=== PATIENT | female | born 1970 | race Caucasian/White ===

== ENCOUNTER 2016-09-25 13:01 | Observation (INO) | payer BC ==
[2016-09-25 14:50] LABS: Hematocrit 39 % (35-47); Hemoglobin 13.1 g/dl (12.0-16.0); Mean Corpuscular HGB Conc 34 g/dl (31-36); Mean Corpuscular Hemoglobin 31 pg (27-31); Mean Corpuscular Volume 92 fL (80-97); Mean Platelet Volume 7 um3 (7.4-10.4); Red Blood Count 4.21 10^6/ul (4.0-5.4); Red Cell Distribution Width 13 % (10.5-15); White Blood Count 6.7 10^3/ul (3.5-10.8)
[2016-09-25 15:06] LABS: BUN/Creatinine Ratio 9.4 (8-20); Calcium 8.4 mg/dL (8.6-10.3); EGFR African American 129.1 (>60); EGFR Non-African American 100.3 (>60); Magnesium 1.9 mg/dL (1.9-2.7); Potassium 3.6 mmol/L (3.5-5.0)
--- NOTE | 2016-09-25 15:48 | RAD ---
HISTORY: Left calf pain COMPARISONS: None relevant TECHNIQUE: Multiple transverse and longitudinal ultrasound images were obtained of the left lower extremity from the level of the common femoral vein inferiorly through to the infrapopliteal veins using grayscale, color Doppler, and spectral Doppler imaging with and without compression and with augmentation. Comparison images were obtained of the contralateral common femoral vein. FINDINGS: VEINS: The venous system of the left lower extremity is compressible throughout its course, with normal flow on color Doppler imaging and normal response to augmentation on spectral Doppler imaging. SOFT TISSUES: Unremarkable. OTHER FINDINGS: None. IMPRESSION: NO LEFT LOWER EXTREMITY DEEP VEIN THROMBOSIS
[2016-09-25] MEDS ORDERED: NS 0.9% 1000 ML* 1,000 ML IV ONE (15:52)
--- NOTE | 2016-09-25 17:19 | ED ---
Complex/Multi-Sys Presentation - HPI Summary HPI Summary: Pt here w/ "just feeling sick" x 1 week. Also has Lt LE pain and is concerned this could be a MRSA infection as she had one here when she was a kid. No overlying redness, streaking, fever, chills, swelling of LE. [facility] to [facility] - per pt, no DVT. Denies fever, chills, URI sx, chest pain, cough, shortness of breath, abdominal pain, dysuria, nausea, vomiting, diarrhea, dysuria. States she was seen at her [facility] (Dr. Colby) 1 week ago for annual exam. Upon reviewing routine labs, pt was found to have elevated WBC's. She reports a h/o flu-like sx 3 weeks ago - this improved and she's been feeling fine until recent sx started. Sx today feel different from flu-like sx 3 weeks ago. She also reports she's been struggling with feeling well in general since thyroidectomy in April 2016. H/o hyponatremia, hypocalcemia - states the latter may be a result of accidental parathyroid removal and damage to a couple of these glands. She's been taking levothyroxine since (TFS's appear to be normal per labs except a low total F3). She takes a calcium supplement as well as a beta william since this surgery (metoprolol 12.5mg BID). Still has intermittent palpitations but not as bad as they were and nothing new as of late. Also struggles w/ hypoglycemia since surgery. No swelling or acute hair loss reported. Has not been sleeping well in general the past week - again, "just doesn't feel right". - History Of Current Complaint Hx Obtained From: Patient, Family/Morning Show Host - male partner <Diana Ford - Last Filed: 09/25/16 17:29> <Drea Stein - Last Filed: 09/27/16 09:56> - History Of Current Complaint Chief Complaint: EDExtremityLower Time Seen by Provider: 09/25/16 14:32 - Allergies/Home Medications Allergies/Adverse Reactions: Allergies Allergy/AdvReac Type Severity Reaction Status Date / Time Cephalexin [From Keflex] Allergy Severe Anaphylatic Verified 06/01/16 16:59 Shock Home Medications: Home Medications Calcium Carbonate CHEW TAB* [Tums*] 1,000 mg PO DAILY 09/25/16 [History Confirmed 09/25/16] Levothyroxine TAB* [Synthroid TAB*] 137 mcg PO 0800 09/25/16 [History Confirmed 09/25/16] Metoprolol Tartrate 12.5 mg PO BID 09/25/16 [History Confirmed 09/25/16] PMH/Surg Hx/FS Hx/Imm Hx Previously Healthy: Yes Endocrine/Hematology History: Reports: Hx Diabetes - HYPOGLYCEMIA, Hx Thyroid Disease - graves disease, thyroidectomy 04/2016, Other Endocrine/Hematological Disorders - hypoglycemia Cardiovascular History: Denies: Hx Hypertension, Other Cardiovascular Problems/Disorders Respiratory History: Denies: Other Respiratory Problems/Disorders Musculoskeletal History: Reports: Other Musculoskeletal History - herniated cervical disc Sensory History: Reports: Hx Contacts or Glasses - GLASSES Opthamlomology History: Reports: Hx Contacts or Glasses - GLASSES Psychiatric History: Reports: Hx Anxiety - Surgical History Surgery Procedure, Year, and Place: appendectomy. partial hysterectomy. thyroidectomy Hx Anesthesia Reactions: No Infectious Disease History: Yes Infectious Disease History: Denies: Traveled Outside the [place] in Last 30 Days - Family History Known Family History: Positive: None - Social History Lives: With Family Alcohol Use: None Hx Substance Use: No Substance Use Type: Reports: None Hx Tobacco Use: No Smoking Status (MU): Current Every Day Smoker Type: Cigarettes Amount Used/How Often: 1 PPD Length of Time of Smoking/Using Tobacco: several years Have You Smoked in the Last Year: Yes <Diana Ford - Last Filed: 09/25/16 17:29> Review of Systems Constitutional: Negative Eyes: Negative ENT: Negative Positive: Palpitations - see HPI Respiratory: Negative Gastrointestinal: Negative - reduced appetite Genitourinary: Other - urinating more frequently Musculoskeletal: Other - see HPI Negative: Rash, Bruising Neurological: Negative Psychological: Normal All Other Systems Reviewed And Are Negative: Yes <Diana Ford - Last Filed: 09/25/16 17:29> Physical Exam Triage Information Reviewed: Yes Vital Signs On Initial Exam: Initial Vitals Temp Pulse Resp BP Pulse Ox 97.5 F 86 16 106/78 97 09/25/16 13:05 09/25/16 13:05 09/25/16 13:05 09/25/16 13:05 09/25/16 13:05 Vital Signs Reviewed: Yes Appearance: Positive: Well-Appearing, No Pain Distress, Well-Nourished, Thin Skin: Positive: Warm - no erythema, no ecchymosis over affected area on LLE, Dry Head/Face: Positive: Normal Head/Face Inspection Eyes: Positive: Normal, EOMI, Conjunctiva Clear - anicteric sclera ENT: Positive: Normal ENT inspection, Hearing grossly normal, Pharynx normal - mucosa moist. Negative: Nasal congestion, Nasal drainage Neck: Positive: Supple, Nontender, Other: - healed scar over anterior cervical region Respiratory/Lung Sounds: Positive: Clear to Auscultation, Breath Sounds Present. Negative: Rales, Rhonchi, Stridor, Wheezes Cardiovascular: Positive: Normal, RRR, Pulses are Symmetrical in both Upper and Lower Extremities - DP's + 1-2 equal B/L, cap refill < 2 secs, S1, S2. Negative: Murmur, Rub, Leg Edema Left - + Jonathan's, Leg Edema Right Abdomen Description: Positive: Nontender, No Organomegaly, Soft Bowel Sounds: Positive: Present Musculoskeletal: Positive: Normal, Strength/ROM Intact Neurological: Positive: Normal, Sensory/Motor Intact, Alert, Oriented to Person Place, Time, CN Intact II-III, Reflexes Intact Psychiatric: Positive: Normal - [place] Coma Scale Coma Scale Total: 15 <Diana Ford - Last Filed: 09/25/16 17:29> Vital Signs On Initial Exam: Initial Vitals Temp Pulse Resp BP Pulse Ox 97.5 F 86 16 106/78 97 09/25/16 13:05 09/25/16 13:05 09/25/16 13:05 09/25/16 13:05 09/25/16 13:05 <Drea Stein - Last Filed: 09/27/16 09:56> Diagnostics - Vital Signs Vital Signs Temp Pulse Resp BP Pulse Ox 09/25/16 17:00 68 96 09/25/16 16:00 65 126/73 94 09/25/16 15:00 93/59 09/25/16 14:30 94/67 09/25/16 14:00 66 99/70 94 09/25/16 13:34 71 95 09/25/16 13:32 102/70 09/25/16 13:05 97.5 F 86 16 106/78 97 - Laboratory Lab Results: Lab Results 09/25/16 09/25/16 09/25/16 Range/Units 14:40 14:40 14:40 WBC 6.7 (3.5-10.8) 10^3/ul RBC 4.21 (4.0-5.4) 10^6/ul Hgb 13.1 (12.0-16.0) g/dl Hct 39 (35-47) % MCV 92 (80-97) fL MCH 31 (27-31) pg MCHC 34 (31-36) g/dl RDW 13 (10.5-15) % Plt Count 239 (150-450) 10^3/ul MPV 7 L (7.4-10.4) um3 Neut % (Auto) 61.2 (38-83) % Lymph % (Auto) 32.4 (25-47) % Mcdonough % (Auto) 4.7 (1-9) % Eos % (Auto) 1.1 (0-6) % Baso % (Auto) 0.6 (0-2) % Absolute Neuts (auto) 4.1 (1.5-7.7) 10^3/ul Absolute Lymphs (auto) 2.2 (1.0-4.8) 10^3/ul Absolute Monos (auto) 0.3 (0-0.8) 10^3/ul Absolute Eos (auto) 0.1 (0-0.6) 10^3/ul Absolute Basos (auto) 0 (0-0.2) 10^3/ul Absolute Nucleated RBC 0 10^3/ul Nucleated RBC % 0 Sodium 122 L (133-145) mmol/L Potassium 3.6 (3.5-5.0) mmol/L Chloride 93 L (101-111) mmol/L Carbon Dioxide 23 (22-32) mmol/L Anion Gap 6 (2-11) mmol/L BUN 6 (6-24) mg/dL Creatinine 0.64 (0.51-0.95) mg/dL Est GFR ( Amer) 129.1 (>60) Est GFR (Non-Af Amer) 100.3 (>60) BUN/Creatinine Ratio 9.4 (8-20) Glucose 91 (70-100) mg/dL Lactic Acid 0.6 (0.5-2.0) mmol/L Calcium 8.4 L (8.6-10.3) mg/dL Magnesium 1.9 (1.9-2.7) mg/dL Result Diagrams: 09/25/16 14:40 09/25/16 14:40 Lab Statement: Any lab studies that have been ordered have been reviewed, and results considered in the medical decision making process. <Diana Ford - Last Filed: 09/25/16 17:29> - Vital Signs Vital Signs Temp Pulse Resp BP Pulse Ox 09/25/16 17:00 68 96 09/25/16 16:00 65 126/73 94 09/25/16 15:00 93/59 09/25/16 14:30 94/67 09/25/16 14:00 66 99/70 94 09/25/16 13:34 71 95 09/25/16 13:32 102/70 09/25/16 13:05 97.5 F 86 16 106/78 97 - Laboratory Lab Results: Lab Results 09/25/16 09/25/16 09/25/16 Range/Units 14:40 14:40 14:40 WBC 6.7 (3.5-10.8) 10^3/ul RBC 4.21 (4.0-5.4) 10^6/ul Hgb 13.1 (12.0-16.0) g/dl Hct 39 (35-47) % MCV 92 (80-97) fL MCH 31 (27-31) pg MCHC 34 (31-36) g/dl RDW 13 (10.5-15) % Plt Count 239 (150-450) 10^3/ul MPV 7 L (7.4-10.4) um3 Neut % (Auto) 61.2 (38-83) % Lymph % (Auto) 32.4 (25-47) % Mcdonough % (Auto) 4.7 (1-9) % Eos % (Auto) 1.1 (0-6) % Baso % (Auto) 0.6 (0-2) % Absolute Neuts (auto) 4.1 (1.5-7.7) 10^3/ul Absolute Lymphs (auto) 2.2 (1.0-4.8) 10^3/ul Absolute Monos (auto) 0.3 (0-0.8) 10^3/ul Absolute Eos (auto) 0.1 (0-0.6) 10^3/ul Absolute Basos (auto) 0 (0-0.2) 10^3/ul Absolute Nucleated RBC 0 10^3/ul Nucleated RBC % 0 Sodium 122 L (133-145) mmol/L Potassium 3.6 (3.5-5.0) mmol/L Chloride 93 L (101-111) mmol/L Carbon Dioxide 23 (22-32) mmol/L Anion Gap 6 (2-11) mmol/L BUN 6 (6-24) mg/dL Creatinine 0.64 (0.51-0.95) mg/dL Est GFR ( Amer) 129.1 (>60) Est GFR (Non-Af Amer) 100.3 (>60) BUN/Creatinine Ratio 9.4 (8-20) Glucose 91 (70-100) mg/dL Lactic Acid (0.5-2.0) mmol/L Calcium 8.4 L (8.6-10.3) mg/dL Phosphorus 3.1 (2.5-5.0) mg/dL Magnesium 1.9 (1.9-2.7) mg/dL TSH 0.44 (0.34-5.60) mcIU/mL Free T4 1.47 H (0.61-1.12) ng/dL Free T3 2.90 (2.5-3.9) pg/mL Ur Random Sodium mmol/L HIV 1&2 Antibody Nonreactive (Nonreactive) 09/25/16 09/25/16 Range/Units 14:40 14:40 WBC (3.5-10.8) 10^3/ul RBC (4.0-5.4) 10^6/ul Hgb (12.0-16.0) g/dl Hct (35-47) % MCV (80-97) fL MCH (27-31) pg MCHC (31-36) g/dl RDW (10.5-15) % Plt Count (150-450) 10^3/ul MPV (7.4-10.4) um3 Neut % (Auto) (38-83) % Lymph % (Auto) (25-47) % Mcdonough % (Auto) (1-9) % Eos % (Auto) (0-6) % Baso % (Auto) (0-2) % Absolute Neuts (auto) (1.5-7.7) 10^3/ul Absolute Lymphs (auto) (1.0-4.8) 10^3/ul Absolute Monos (auto) (0-0.8) 10^3/ul Absolute Eos (auto) (0-0.6) 10^3/ul Absolute Basos (auto) (0-0.2) 10^3/ul Absolute Nucleated RBC 10^3/ul Nucleated RBC % Sodium (133-145) mmol/L Potassium (3.5-5.0) mmol/L Chloride (101-111) mmol/L Carbon Dioxide (22-32) mmol/L Anion Gap (2-11) mmol/L BUN (6-24) mg/dL Creatinine (0.51-0.95) mg/dL Est GFR ( Amer) (>60) Est GFR (Non-Af Amer) (>60) BUN/Creatinine Ratio (8-20) Glucose (70-100) mg/dL Lactic Acid 0.6 (0.5-2.0) mmol/L Calcium (8.6-10.3) mg/dL Phosphorus (2.5-5.0) mg/dL Magnesium (1.9-2.7) mg/dL TSH (0.34-5.60) mcIU/mL Free T4 (0.61-1.12) ng/dL Free T3 (2.5-3.9) pg/mL Ur Random Sodium 51 mmol/L HIV 1&2 Antibody (Nonreactive) Result Diagrams: 09/25/16 14:40 09/26/16 06:24 Lab Statement: Any lab studies that have been ordered have been reviewed, and results considered in the medical decision making process. <Drea Stein - Last Filed: 09/27/16 09:56> Complex Multi-Symp Course/Dx Course Of Treatment: Pt presents with "feeling sick" over past week. Also has LLE pain. Came in out of concern regarding recent elevated WBC's on routine lab exam. Also concerned leg pain is d/t MRSA infection as she had this as a child. Reports she's srtuggled w/ Na, Calcium and glucose levels since thryoidectomy in Apr 2016 -follows w/ Dr. Colby. Most recent TFS's are stable. Labs reveal improved WBC's however pt has a very low Na at 122, Chloride 93 and Calcium 8.4 (states the latter is normal for her). See HPI and note for details. Spoke with Dr. Alice Taylor who prefers the hospital service to admit pt tonight, however she will round on the patient tomorrow morning. Spoke with Dr. Reyez who agrees w/ plan. - Physician Notifications Discussed Care Of Patient With: Dr. Stein. Dr. Taylor. Dr. Reyez <Diana Ford - Last Filed: 09/25/16 17:29> <Drea Stein - Last Filed: 09/27/16 09:56> - Diagnoses Provider Diagnoses: Hyponatremia Discharge <Diana Ford - Last Filed: 09/25/16 17:29> <Drea Stein - Last Filed: 09/27/16 09:56> - Discharge Plan Condition: Stable Disposition: ADMITTED TO [facility] User Type: Provider - I was available for consult. This patient was seen by the advanced practice provider. The patient was not seen by or examined by me. <Drea Stein - Last Filed: 09/27/16 09:56>
[2016-09-25] MEDS ORDERED: HYDROcodone/ACETAMIN 5-325 MG* 1 TAB PO PRN (17:42)
[2016-09-25 18:15] LABS: TSH (Thyroid Stimulating Horm) 0.44 mcIU/mL (0.34-5.60)
[2016-09-25 18:20] LABS: Free T3 2.9 pg/mL (2.5-3.9)
[2016-09-25 18:21] LABS: Free T4 1.47 ng/dL (0.61-1.12)
--- NOTE | 2016-09-25 18:48 | RAD ---
HISTORY: Fluid versus pneumonia, generalized illness COMPARISONS: June 01, 2016 VIEWS:1: Single frontal portable view of the chest at 6:23 PM FINDINGS: Evaluation is limited by overlying metallic artifact. LINES AND TUBES: None. CARDIOMEDIASTINAL SILHOUETTE: The cardiomediastinal silhouette is normal for portable technique. PLEURA: The costophrenic angles are sharp. No pleural abnormalities are noted. LUNG PARENCHYMA: There is minimal linear opacification of the right lung base. ABDOMEN: The upper abdomen is clear. There is no subphrenic gas. BONES AND SOFT TISSUES: No bone or soft tissue abnormalities are noted. IMPRESSION: MINIMAL LINEAR ATELECTASIS OF THE RIGHT LOWER LUNG.
[2016-09-25] MEDS: HYDROcodone/ACETAMIN 5-325 MG* 1 TAB PO PRN (19:57)
[2016-09-25 20:10] LABS: Calcium 8.4 mg/dL (8.6-10.3); EGFR African American 147.5 (>60); EGFR Non-African American 114.7 (>60); Potassium 3.6 mmol/L (3.5-5.0)
--- NOTE | 2016-09-25 21:01 | HP ---
HISTORY AND PHYSICAL: DATE OF ADMISSION: 09/25/16 PRIMARY CARE PHYSICIAN: Dr. Sridhar Colby ATTENDING PHYSICIAN: Tanya Reyez DO *(dictation provided by Cassia Yarbrough NP) PRIMARY COMPLAINT: Generally feeling unwell and having left calf pain. HISTORY OF PRESENT ILLNESS: Ms. Puente is a 46-year-old female with a past medical history of Graves disease status post subtotal thyroidectomy in 2016 as well as hypertension, anxiety and chronic back pain who presents today to the hospital with concern for "feeling generally unwell" and left calf pain. Ms. Puente states that she started feeling unwell approximately one week ago. She describes nausea, but no vomiting. She has been able to tolerate oral intake, although her appetite has been limited. She describes malaise, myalgias and arthralgias. She has not had a fever, but she has had chills. She has had a little bit of a cough, but that resolved quickly. She has normal formed bowel movements. She denies any night sweats. In addition to this, a few days ago, she developed pain in her left calf. She has no memory of any trauma to the area. She states the pain is fairly constant, nothing seems to exacerbate or lessen it. Ultimately, she decided to come to the emergency room today because she has been sleeping so poorly and knew that something must be wrong because she felt so unwell. In the emergency room, Ms. Puente had a venous Doppler study of her left lower extremity, which showed no evidence of DVT. The clinical exam on her left lower extremity was also benign. She did not go for further x-ray imaging. She was surprisingly found to have a sodium of 122. She has a history of hyponatremia dating back to April 2016. The patient reports that at that time it was felt that that was secondary to pneumonia. She denies any excessive free water intake and states that she drinks about three bottles of water per day. She denies beer drinking at all. She denies any unusual ingestions. Based on Ms. Puente's presentation with malaise and sodium of 122, Hospital Medicine was called regarding admission. PAST MEDICAL HISTORY: 1. Anxiety. 2. Chronic back pain, on hydrocodone. 3. Hypothyroidism status post Graves disease and subtotal thyroidectomy in 2016. 4. Tachycardia for which he takes metoprolol. 5. History of hysterectomy, 1995. 6. History of appendectomy, 2001. 7. History of hypocalcemia, on daily replacement. MEDICATIONS: 1. Biotin 1000 micrograms p.o. daily. 2. Citalopram 40 mg p.o. daily. 3. Tylenol PM two tablets p.o. bedtime. 4. Hydrocodone/acetaminophen one tablet p.o. 4 times a day. 5. Ibuprofen 600 mg p.o. b.i.d. 6. Melatonin 10 mg p.o. at bedtime. 7. Alprazolam 1 mg p.o. t.i.d. 8. Carisoprodol 350 mg p.o. t.i.d. 9. Cholecalciferol 1000 units p.o. daily. 10. Gabapentin 300 mg p.o. t.i.d. 11. Levothyroxine 137 micrograms p.o. daily. 12. Metoprolol tartrate 12.5 mg p.o. b.i.d. ALLERGIES: CEPHALEXIN. FAMILY HISTORY: The patient reports that there is hypothyroidism in the mother and the sister. No significant history otherwise noted. SOCIAL HISTORY: The patient is a continued a pack a day smoker and she smokes since she was 17. She has never tried to quit. She denies any alcohol or drug use. She lives with her , who is her healthycare proxy. REVIEW OF SYSTEMS: A 14-point review of systems was completed with Ms. Puente and all those not mentioned above were negative. PHYSICAL EXAMINATION GENERAL: Ms. Puente is lying in the bed. She is in no acute distress. She is calm and cooperative with my examination. VITAL SIGNS: Temperature 98.5, heart rate 68, respiratory rate 18, O2 saturations 96% on room air, and blood pressure 126/73. HEART: S1 and S2. No murmur, rubs, or gallop. Regular. LUNGS: Clear to auscultation bilaterally with no accessory muscle use and good aeration. ABDOMEN: Soft and nontender with bowel sounds positive x4. EXTREMITIES: No cyanosis or edema. There is no gross abnormality to the left calf at all. The area is soft, nontender and no erythema, no edema. SKIN: Intact. NEUROLOGIC: She is alert and oriented x3. She moves all extremities equally. There is no facial asymmetry or focal weakness. Extraocular movements are intact. DIAGNOSTIC STUDIES/LAB DATA: Sodium 122, potassium 3.6, chloride 93, serum bicarbonate 23, BUN 6, creatinine 0.64, glucose 91, lactic acid 0.6, and magnesium 1.9. TSH, free T4 and free T3 are pending. WBC is 6.7, hemoglobin 13.1, hematocrit 39, platelet count 239. Chest x-ray is pending. Venous Doppler study shows no DVT of the left lower extremity. ASSESSMENT: Ms. Puente is a 46-year-old female with past medical history of Graves disease now with hypothyroidism status post subtotal thyroidectomy as well as anxiety and chronic back pain who presents today at the hospital with concern for feeling generally unwell and having left calf pain. In the emergency room, she was found to be hyponatremic with a sodium of 122. Our plan is for observation in the hospita for the followin. Hyponatremia: The cause of Ms. Puente's hyponatremia is unclear. I do note that she did have an episode late last year that was felt to be related to pneumonia. Since then her sodium has been at least 130 or above. She denies excessive water intake. She denies excessive beer intake. She is on a list of medications that has not changed recently. I note that she is on citalopram, which can cause hyponatremia. She states she has been on this for two years. She is willing to consider reducing that and perhaps going off of that if that is what the cause. For now, I am decreasing the dose to 20 mg. It could be related to under treated hypothyroidism and I am checking a TSH, free T3 and T4. I am also checking a chest x-ray. The patient is a senior care chronic smoker and could have lung pathology causing SIADH. Her volume status at this time is essentially euvolemic. Plan to recheck her sodium level in a couple of hours. She has been given some normal saline in the emergency room. In the interim, she will be on a fluid restriction and we can adjust that going forward based on repeat checks of the sodium. 2. Chronic pain. Continue hydrocodone. 3. Hypothyroidism. Again, we are checking TSH and free T3, T4, but for now we will continue her home dose of levothyroxine. 4. Anxiety. Continue Xanax and we will be reducing the dose of citalopram. The patient was comfortable with that. 5. Tachycardia. Continue metoprolol. 6. Hypocalcemia. Continue Tums. 7. DVT prophylaxis with heparin subcu. 8. Disposition to the [facility] for observation. 9. Code status. Full code. TIME SPENT: Approximately 60 minutes was spent in the admission of this patient , more than half of the time was spent with her at the bedside reviewing the events leading up to this hospitalization, performing the physical examination, and reviewing the plan of care. CASSIA YARBROUGH NP CC: Dr. Colby * [id number]/CPS #: [id number] SRI
[2016-09-25] MEDS: NS 0.9% 1000 ML* 1,000 ML IV SCH (22:59)
[2016-09-25] MEDS: ALPRAZolam TAB* 0.5 MG PO SCH (23:06)
[2016-09-25] MEDS: Gabapentin CAP(*) 300 MG PO SCH (23:07)
[2016-09-25] MEDS: Carisoprodol TAB* 350 MG PO SCH (23:08)
[2016-09-25] MEDS: Metoprolol Tartrate TAB* 25 MG PO SCH (23:41)
[2016-09-25] MEDS ORDERED: Nicotine PATCH 21 MG/24 HR* PATCH TRANSDERM SCH (23:45)
[2016-09-26 07:14] LABS: Anion Gap 6 mmol/L (2-11); BUN/Creatinine Ratio 9.7 (8-20); Blood Urea Nitrogen 6 mg/dL (6-24); CO2 Carbon Dioxide 23 mmol/L (22-32); Calcium 8.3 mg/dL (8.6-10.3); Chloride 109 mmol/L (101-111); EGFR African American 133.9 (>60); EGFR Non-African American 104.1 (>60); Glucose 81 mg/dL (70-100); Potassium 3.7 mmol/L (3.5-5.0); Sodium 138 mmol/L (133-145)
[2016-09-26] MEDS ORDERED: Levothyroxine TAB* 137 MCG TAB PO SCH (08:00)
[2016-09-26] MEDS: ALPRAZolam TAB* 0.5 MG PO SCH ×2 (08:21→14:02)
[2016-09-26] MEDS: NS 0.9% 1000 ML* 1,000 ML IV SCH (08:22)
[2016-09-26] MEDS: Carisoprodol TAB* 350 MG PO SCH ×2 (08:22→14:00)
[2016-09-26] MEDS: Metoprolol Tartrate TAB* 25 MG PO SCH (08:23)
[2016-09-26] MEDS: Gabapentin CAP(*) 300 MG PO SCH ×2 (08:23→14:01)
[2016-09-26] MEDS ORDERED: Cholecalciferol TAB* 1000 UNITS PO SCH (09:00)
[2016-09-26] MEDS ORDERED: Calcium Carbonate CHEW TAB* 500 MG (TUMS) PO SCH (09:00)
[2016-09-26] MEDS ORDERED: Citalopram TAB* 20 MG PO SCH (09:00)
[2016-09-26] MEDS: HYDROcodone/ACETAMIN 5-325 MG* 1 TAB PO PRN (11:11)
[2016-09-26] MEDS ORDERED: Nicotine Patch Removal NOTE PATCH OFF SCH (11:45)
[2016-09-26 12:32] LABS: C Reactive Protein < 1.00 mg/L (< 5.00)
[2016-09-26 13:14] VITALS: BP 106/64
[2016-09-26 13:41] LABS: Phosphorus 3.1 mg/dL (2.5-5.0)
--- NOTE | 2016-09-26 13:51 | RAD ---
HISTORY: Atelectasis, hyponatremia COMPARISONS: September 25, 2016 VIEWS: 2: Frontal dual-energy and lateral views of the chest. FINDINGS: CARDIOMEDIASTINAL SILHOUETTE: The cardiomediastinal silhouette is normal. MARIELENA: The marielena are normal. PLEURA: The costophrenic angles are sharp. No pleural abnormalities are noted. LUNG PARENCHYMA: There is hyperinflation. There is improved aeration of the right lung base ABDOMEN: The upper abdomen is clear. There is no subphrenic gas. BONES AND SOFT TISSUES: No bone or soft tissue abnormalities are noted. OTHER: None. IMPRESSION: HYPERINFLATION, CONSISTENT WITH COPD. NO ACTIVE CARDIOPULMONARY DISEASE.
--- NOTE | 2016-09-27 08:31 | DS ---
DISCHARGE SUMMARY: DATE OF ADMISSION: 09/25/16 DATE OF DISCHARGE: 09/26/16 DISCHARGE DIAGNOSES: 1. Hyponatremia, resolved. 2. Acquired hypothyroidism due to thyroidectomy for Graves disease, treated, normal TSH. 3. History of anxiety. 4. History of neck and arm pain due to cervical radiculopathy. 5. History of tachycardia. 6. Tobacco abuse. 7. Hypocalcemia. 8. Atelectasis on chest x-ray. 9. Status post hysterectomy. 10. Status post appendectomy. 11. Recent upper respiratory infection. 12. Recent nausea, possible viral gastroenteritis. 13. Left calf pain, etiology uncertain. 14. History of vitamin D deficiency. HISTORY: The patient is a 46-year-old woman admitted with feelings of malaise, left calf pain, found to be hyponatremic in the emergency room. Please see the dictated admission note for details of the present illness, past medical history , family history, social and personal history, review of systems, and physical examination. LABORATORY: WBC 6.6, H and H 13.1/39, MCV 92, PLT 239,000. Chemistries: Sodium 122, potassium 3.6, chloride 93, CO2 23, BUN 6, creatinine 0.64, calcium 8.4. Repeat chemistries on 09/25/16: Sodium 128 and on 09/26/16, sodium 138, potassium 3.7, chloride 106, CO2 23, BUN and creatinine 6/0.62, glucose 81, calcium 8.3. CRP less than 1. Free T4 1.47, free T3 2.90, TSH 0.44, magnesium 1.9. Urine sodium 51. Serum osmolality pending. Influenza A and B negative. IMAGING: Chest x-ray showed right basilar atelectasis, which is new since previous EKG from fall 2015. Venous Doppler study of the left calf was negative for DVT. Repeat chest x-ray pending. HOSPITAL COURSE: The patient was admitted. She was given IV normal saline and her sodium came up (see above). The cause of her hyponatremia was unclear. The urine osmolality is pending. She might have had a viral gastroenteritis causing nausea that caused her to lose her appetite. She was on citalopram which she has been on for some time, can cause hyponatremia. So, this dose was cut in half. She was felt to be euvolemic. She was said to be placed on the fluid restriction, but said she was drinking plenty of water when she was in the hospital. She did receive IV fluids. She got at least 3 bags she thinks. The last bag was stopped this morning. It is not clear from the MAR exactly how much she got. Her other usual medications were continued other than the cutback on the citalopram. When I saw her on 09/26/16, she said she was feeling better, but not great. She described a respiratory infection that she has had about a month ago which lasted about 2 weeks and she has felt better after that until she began not feeling well on Tuesday losing her appetite (6 days ago). She can think of no other reason why her sodium would have gone down. At this point, it was felt that with her sodium back up and her feeling better that it was reasonable for her to go home. We discussed keeping a regular diet and not limiting salt. She was told to cut back on her soda intake , stop drinking Pepsi which she was drinking about 3 to 4 cans a day. She was told to drink juices such as V8 instead which would increase her salt intake. She said she liked that. Her activity was as tolerated. She was told not to smoke. She did have patches at home. They have been paid for by her insurance company. At the present time, her medications are as follows: 1. Citalopram 20 mg once a day. 2. Hydrocodone/APAP 7.5/325 two every 4 hours as needed for pain. 3. Alprazolam 1 mg 3 times a day as needed for anxiety. 4. Carisoprodol 250 mg 3 times a day as needed for muscle spasm. 5. Gabapentin 300 mg 3 times a day. 6. Metoprolol 12.5 mg twice a day. 7. Nicotine patch 21 mg every 24 hours. 8. Levothyroxine 137 mcg daily. 9. Tums 500 mg 3 times a day. 10. Vitamin D3 1000 units per day. Pending at the time of her discharge also are her vitamin D level and her phosphorus level. She is to see Dr. Colby in followup on 09/29/16. At that time , she should have a basic metabolic panel done. We will be giving her followup on her chest x- ray. CC: Dr. Sridhar Colby; [place] [id number]/[facility] #: [id number] [facility] NETWORKK[facility]
== END 2016-09-26 14:15 | disposition home or self-care (01) ==
LOC: ED 13:01 → MED 17:32 → INTOOBSV 17:32
PROVIDERS: ADMIT Hospitalist; ATTEND Hospitalist
DX: E87.1 Hypo-osmolality and hyponatremia (principal); M79.662 Pain in left lower leg; G89.29 Other chronic pain; M54.9 Dorsalgia, unspecified; E03.9 Hypothyroidism, unspecified; R00.0 Tachycardia, unspecified; F41.9 Anxiety disorder, unspecified; E83.51 Hypocalcemia; J98.11 Atelectasis; M54.12 Radiculopathy, cervical region; F17.210 Nicotine dependence, cigarettes, uncomplicated; Z79.899 Other long term (current) drug therapy; Z88.1 Allergy status to other antibiotic agents
CPT/HCPCS: 36415; 71010; 71020; 80048; 82306; 83605; 83735; 83935; 84100; 84300; 84439; 84443; 84481; 85025; 86140; 86703; 87502; 96360; 99283; A9270-GY; G0378

== ENCOUNTER 2016-12-02 09:01 | Observation (INO) | payer BC ==
[2016-12-02] MEDS: oxyCODONE TAB* 5 MG TAB PO SCH ×2 (12:45→20:27)
[2016-12-02] MEDS: Carisoprodol TAB* 350 MG PO SCH ×2 (12:46→20:30)
[2016-12-02] MEDS: ALPRAZolam TAB* 0.5 MG PO SCH ×2 (12:46→20:29)
[2016-12-02] MEDS: Gabapentin CAP(*) 300 MG PO SCH ×2 (13:11→20:28)
[2016-12-02] MEDS ORDERED: Mouth Piece, Nicotine* 1 EACH CARTRIDGE ONE (15:09)
[2016-12-02] MEDS: Nicotine Inhaler* 10 MG AMP INH PRN ×2 (15:10→19:43)
--- NOTE | 2016-12-02 15:46 | HP ---
ADMISSION HISTORY AND PHYSICAL: DATE OF ADMISSION: 12/02/16 REASON FOR ADMISSION: Hypoglycemia. HISTORY OF PRESENT ILLNESS: This patient is a 46-year-old white female with a 2 -year history of recurrent episodes of hypoglycemia that are not necessarily related to meals and are sometimes associated with symptomatology (which includes dizziness, hazy thinking, and abdominal pain). Hypoglycemic episodes began about the same time as the patient developed hypothyroidism, for which she takes Synthroid 137 mcg daily. The patient claims almost daily episodes of hypoglycemia, which she has documented with fingerstick glucose determinations. 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 OUTPATIENT MEDICATIONS: 1. Levothyroxine (137 mcg p.o. daily). 2. Neurontin (300 mg p.o. t.i.d.). 3. Celexa 40 mg p.o. daily. 4. Carisoprodol (350 mg p.o. t.i.d.). 5. Xanax (1 mg p.o. t.i.d.). 6. Hydrocodone/acetaminophen (1 tab 4 times a day). 7. Metoprolol (12.5 mg p.o. b.i.d.). DRUG ALLERGIES: CEPHALEXIN, which has caused anaphylactic shock. SOCIAL HISTORY: The patient is , and lives with her . She has 3 sons. There is a strong history of smoking (2 ppd), but no history of ethanol or illicit drug abuse. PHYSICAL EXAMINATION GENERAL: The patient is alert, oriented, and appears comfortable. VITAL SIGNS: Temperature was 97.2 degrees, heart rate 72 and regular, respirations 14 per minute and non-labored, arterial O2 saturation 95% on room air, blood pressure 96/60. HEENT: Pupils mid position and reactive. Extraocular muscle movements full. No facial asymmetry. NECK: Supple. No jugular venous distention or masses. Thyroidectomy scar present. LUNGS: Clear to auscultation. CARDIAC: No murmurs, rubs, or gallops. ABDOMEN: Soft, nontender. EXTREMITIES: Warm, not cyanotic, and not edematous. NEUROLOGIC: There are no focal abnormalities. ADMISSION LABORATORY DATA: Pending. IMPRESSION: Recurrent hypoglycemia by history. MANAGEMENT PLAN: The patient is admitted for a 72-hour fast (she can have liquids, as long as there is no caloric content and no caffeine). Plan is to check plasma glucose every 6 hrs; if it falls below 60 mg/dL, will measure plasma levels of insulin, beta hydroxybutyrate, C-peptide and proinsulin. The fast will be terminated if the glucose falls below 45 mg/dL. Dr. Sridhar Colby, will evaluate the results of this test. [id number]/[facility] #: [id number] [facility]
[2016-12-03] MEDS: oxyCODONE TAB* 5 MG TAB PO SCH (04:55)
[2016-12-03] MEDS ORDERED: Levothyroxine TAB* 137 MCG TAB PO SCH (06:00)
[2016-12-03] MEDS: Carisoprodol TAB* 350 MG PO SCH (08:53)
[2016-12-03] MEDS: Gabapentin CAP(*) 300 MG PO SCH (08:53)
[2016-12-03] MEDS: ALPRAZolam TAB* 0.5 MG PO SCH (08:53)
[2016-12-03] MEDS ORDERED: Citalopram TAB* 40 MG PO SCH (09:00)
[2016-12-03 10:26] VITALS: BP 110/68
--- NOTE | 2016-12-03 23:04 | DS ---
DISCHARGE SUMMARY: DATE OF ADMISSION: 12/02/16 DATE OF DISCHARGE: 12/03/16 HOSPITAL COURSE: This patient is a 46-year-old white female with an apparent history of recurrent hypoglycemia who is admitted for a 72-hour fast to determine the source of the hypoglycemia. The patient was admitted in the morning of 12/02/16 and had glucose checked every 6 hours and the initial glucose determinations were 82, 84, and 85 mg/dL. Approximately 24 hours after admission, the patient stated that she wanted to leave and did not want to continue the 72- hour fast. The test was, therefore, terminated and the patient was discharged home. Followup will be with Dr. Sridhar Colby, whom the patient will contact. FINAL DIAGNOSIS: Hypoglycemia by history without corroboration during a 24- hour fast. [id number]/[facility] #: [id number] [facility]D
== END 2016-12-03 11:45 | disposition home or self-care (01) ==
LOC: ICU 09:04 → INTOOBSV 09:04
PROVIDERS: ADMIT Internal Medicine Critical Care Medicine; ATTEND Internal Medicine Critical Care Medicine
DX: E16.2 Hypoglycemia, unspecified (principal); F41.9 Anxiety disorder, unspecified; M50.90 Cervical disc disorder, unspecified, unspecified cervical region; G89.29 Other chronic pain; Z88.1 Allergy status to other antibiotic agents; F17.200 Nicotine dependence, unspecified, uncomplicated; E03.9 Hypothyroidism, unspecified
CPT/HCPCS: 36415; 82947; 87641; A9270-GY; G0378